=== PATIENT | female | born 1940 | race Caucasian/White ===

== ENCOUNTER → 2017-07-30 | Outpatient (CLI) | payer MEDICARE ==
[~2017-07-30] MED LIST: AMARYL4 MG PO; AMLODIPINE5 M1 PO; ASPIRIN LOW DOS81 M1 PO; FLAGYL 500MG.500 MG PO; LEVAQUIN250 MG PO; LEVOTHYROXIN0.025 M3 PO; LISINOPRIL40 MG PO; MAXZIDE 25 MG-31 TAB PO; METFORMIN500 MG PO; ONDANSETRON 4MG4 MG PO; SIMVASTATIN40 MG PO
--- NOTE | 2017-07-31 07:53 | RADIOLOGY REPORT PS360 ---
US THYROID HISTORY: Goiter, follow-up thyroid nodule. COMPARISON: 06/17/2013 GOITER ORDERING PHYSICIAN: Ana Quiroz MD PATIENT AGE: 76 years FINDINGS: Right lobe: The right lobe measures 8.6 x 4.2 x 4.8 cm with a multinodular appearance with heterogeneous echogenicity. Left lobe: 6.2 x 3 x 2.9 cm with a multilobular appearance with heterogeneous echogenicity. Isthmus: Isthmus is thickened at 15 mm IMPRESSION: Multinodular goiter. The thyroid gland has a multinodular appearance bilaterally. Is difficult to measure distinct nodules due to the heterogeneous echogenicity. Overall the findings are not significantly changed from 06/17/2013.
== END ==
LOC: RAD 15:06
DX: E04.9 Nontoxic goiter, unspecified (principal)